=== PATIENT | female | born 1975 | race Caucasian/White ===

== ENCOUNTER 2017-08-17 17:32 | Observation (INO) ==
[2017-08-17 19:03] LABS: Basophils % 0.3 %; Eosinophils # 0.1 K/mcL (0.0-0.6); Eosinophils % 0.7 %; Hematocrit 35.8 % (35.3-44.9); Hemoglobin 12.1 g/dL (11.5-15.4); Immature Granulocytes % 0.2 % (0-4); Lymphocytes % 27.6 %; Mean Corpuscular HGB Conc 33.8 g/dL (31.6-35.5); Mean Corpuscular Hemoglobin 31.1 pg (28.0-33.3); Mean Platelet Volume 9.2 fL (9.4-12.4); Monocytes # 0.4 K/mcL (0.0-1.3); Monocytes % 3.3 %; Neutrophils # 7.4 K/mcL (1.6-8.9); Platelet Count 423 K/mcL (140-400); Red Blood Count 3.89 M/mcL (3.82-4.97); Red Cell Distribution Width 13.5 % (11.5-14.5); Segmented Neutrophils % 67.9 %
[2017-08-17 19:13] LABS: Albumin 3.6 g/dL (3.5-5.7); Bilirubin,Indirect 0.3 mg/dL (0.0-1.2); Bilirubin,Total 0.3 mg/dL (0.3-1.0); Calcium 8.9 mg/dL (8.6-10.3); Carbon Dioxide 24 mEq/L (23-29); Chloride 108 mEq/L (98-107); Potassium 3.3 mEq/L (3.5-5.1); Sodium 138 mEq/L (136-145)
[2017-08-17 19:19] LABS: Alanine Aminotransferase 26 Units/L (7-52); Alkaline Phosphatase 110 Units/L (34-104); Aspartate Amino Transferase 14 Units/L (13-39); BUN/Creatinine Ratio 14 (6-26); Blood Urea Nitrogen 10 mg/dL (6-20); Globulin 3.6 g/dL (2.4-3.5); Glucose 85 mg/dL (70-105); Lipase 28 Units/L (11-82); Osmolality,Calculated 284 (280-300); Total Protein 7.2 g/dL (6.4-8.9); eGFR For African Americans > 60 (> 60); eGFR For Non-African Americans > 60 (> 60)
[2017-08-17] MEDS ORDERED: Ondansetron 4 MG/2 ML VIAL IVP ONE (20:17)
[2017-08-17] MEDS ORDERED: *HR* HYDROmorphone (PF) 1 MG/ML SYRINGE IVP ONE ×3 (20:17→22:34)
[2017-08-17] MEDS ORDERED: 0.9 % Sodium Chloride 1,000 ML IVC ONE (20:17)
--- NOTE | 2017-08-17 20:29 | Emergency Department Note ---
Disposition Clinical Impression: Pancreatitis Qualifiers: Chronicity: acute Pancreatitis type: unspecified pancreatitis type Acute pancreatitis complication: unspecified Qualified Code(s): K85.90 - Acute pancreatitis without necrosis or infection, unspecified Abdominal pain Qualifiers: Abdominal location: epigastric Qualified Code(s): R10.13 - Epigastric pain Disposition: Admitted As Inpatient Condition: Fair Referrals: NONE,PCP [Primary Care Provider] - Forms: ED Satisfaction Letter, Work/School Release Time of Disposition: 22:33 Abdominal Pain HPI - General Chief Complaint: ED Abdominal Pain Stated Complaint: ABD Pain, N/V/D Time Seen by Provider: 08/17/17 20:29 Source: patient, family Mode of arrival: ambulatory Limitations: no limitations Nursing Notes Reviewed: Yes Vital Signs Reviewed: Yes - History of Present Illness HPI Narrative: 42-year-old female presents with right upper quadrant pain, epigastric pain, concern for pancreatitis, patient has this scheduled MRI of her pancreas ordered as she is had some mild peripancreatic swelling and inflammation. Patient states that she has had nausea and vomiting, severe 9.10 pain, worsening today, so she came in to be evaluated. Patient denies vaginal bleeding, dysuria or discharge. Patient states that she had recent CT scan done at [facility] she was admitted twice for abdominal pain and subsequently discharged. Patient states her pain is 9/10 aching crampy, radiating around her right side. She reports low-grade fevers, denies chest pain, denies hemoptysis hematochezia or melena Pt Subjective Complaint: abdominal pain Onset (ago): hour(s) Consistency: intermittent Location: RUQ, epigastric Pain Severity: severe Pain Scale: 9 Quality: cramping, aching Radiation: none Improves with: nothing Worsens with: nothing Associated symptoms: Reports: nausea, vomiting - Related Data Allergies Allergy/AdvReac Type Severity Reaction Status Date / Time azithromycin [From Zithromax] Allergy Hives Verified 08/17/17 17:40 Iodinated Contrast- Oral and Allergy Anaphylaxis Verified 08/17/17 17:40 IV Dye All systems ED: reviewed and negative except as stated. Review of Systems: As Per HPI Constitutional: Denies: fever, chills Eyes: Denies: eye pain ENT ED: Denies: ear pain Cardiovascular: Denies: chest pain, palpitations Respiratory: Denies: cough, dyspnea Gastrointestinal: Reports: as per HPI, abdominal pain, nausea, vomiting. Denies : diarrhea Genitourinary: Denies: urgency, dysuria Musculoskeletal: Denies: back pain Integumentary: Denies: rash Abdominal Pain PMH - Past Medical History Medical history: Reports: RA, other Female Surgical History: Reports: appendectomy, , Tonsillectomy Psychiatric history: Reports: no psych history - Social History Smoking status: Current every day smoker Alcohol use: Reports: none Drug use: Reports: none Physical Exam Constitutional: [place] female appears moderately to severely uncomfortable, somewhat diaphoretic, vital signs show tachycardia HEENT: NCAT, sclera anicteric Neck: normal inspection, neck is supple, trachea midline Resp: normal chest inspection, CTA bilaterally, no resp distress CV: RRR, no m/g/r GI: normal inspection, Soft, moderate severe tenderness to palpation in epigastrium with guarding in the epigastrium, + Gore's Sign, no tenderness at McBurney' point, Negative Rovsing's Back: normal inspection, negative CVA bilaterally, no tenderness to palpation Neuro: A&O3, no gross motor or sensory deficits bilaterally MSK: normal inspection, bilateral UE and LE with normal ROM Skin: No rashes, skin warm, dry, intact - General Limitations: no limitations General appearance: alert Course Course Narrative: 42-year-old female with severe epigastric right upper quadrant pain, positive Gore sign, bedside ultrasound was performed by Dr. Guzman see his documentation but no evidence of anterior wall thickening pericholecystic fluid or obvious gallstones, patient's lab work is ordered, also will check CT scans from [facility]. - Reevaluation(s) Reevaluation #1: CT scan shows evidence of peripancreatic's stranding, consistent with acute pancreatitis, her lipase is on elevated but she is severely tender is required multiple rounds of Dilaudid and is still having pain. Plan will be for admission for pain control, I did speak with primary care physician who corroborates her story and states that she was was 7 abdominal MRI and GI consultation gently we can arrange and this inpatient visit Hospitalist Paged. Time: 22:33 Reevaluation #2: Aki accepted for inpatient admission, possible GI consult and eval. Time: 23:18 Vital Signs Temperature 98.6 F 08/17/17 17:40 Pulse Rate 59 08/17/17 17:40 Respiratory Rate 20 08/17/17 17:40 Blood Pressure 157/110 08/17/17 17:40 O2 Sat by Pulse Oximetry 96 08/17/17 17:40 Temperature 98.6 F 08/17/17 17:40 Pulse Rate 57 08/17/17 21:49 Respiratory Rate 16 08/17/17 21:49 Blood Pressure 136/78 08/17/17 21:49 O2 Sat by Pulse Oximetry 96 08/17/17 21:49 Oxygen Delivery Oxygen Delivery Room Air Abdominal Pain - Lab Data Result diagrams: 08/17/17 18:57 08/17/17 18:57 Lab Results 08/17/17 08/17/17 08/17/17 Range/Units 18:57 18:57 20:51 WBC 10.8 (4.3-11.1) K/mcL RBC 3.89 (3.82-4.97) M/mcL Hgb 12.1 (11.5-15.4) g/dL Hct 35.8 (35.3-44.9) % MCV 92.0 (83.0-100.0) fL MCH 31.1 (28.0-33.3) pg MCHC 33.8 (31.6-35.5) g/dL RDW 13.5 (11.5-14.5) % Plt Count 423 H (140-400) K/mcL MPV 9.2 L (9.4-12.4) fL Immature Gran % 0.2 (0-4) % Seg Neutrophils % 67.9 % Lymphocytes % 27.6 % Monocytes % 3.3 % Eosinophils % 0.7 % Basophils % 0.3 % Neutrophils # 7.4 (1.6-8.9) K/mcL Lymphocytes # 3.0 (0.6-4.6) K/mcL Monocytes # 0.4 (0.0-1.3) K/mcL Eosinophils # 0.1 (0.0-0.6) K/mcL Basophils # 0.0 (0.0-0.2) K/mcL Sodium 138 (136-145) mEq/L Potassium 3.3 L (3.5-5.1) mEq/L Chloride 108 H (98-107) mEq/L Carbon Dioxide 24 (23-29) mEq/L BUN 10 (6-20) mg/dL Creatinine 0.74 (0.60-1.20) mg/dL Est GFR ( Amer) > 60 (> 60) Est GFR (Non-Af Amer) > 60 (> 60) BUN/Creatinine Ratio 14 (6-26) Glucose 85 (70-105) mg/dL Calculated Osmolality 284 (280-300) Calcium 8.9 (8.6-10.3) mg/dL Total Bilirubin 0.3 (0.3-1.0) mg/dL Direct Bilirubin 0.0 (0.0-0.2) mg/dL Indirect Bilirubin 0.3 (0.0-1.2) mg/dL AST 14 (13-39) Units/L ALT 26 (7-52) Units/L Alkaline Phosphatase 110 H (34-104) Units/L Serum Total Protein 7.2 (6.4-8.9) g/dL Albumin 3.6 (3.5-5.7) g/dL Globulin 3.6 H (2.4-3.5) g/dL Albumin/Globulin Ratio 1.0 L (1.1-2.2) Lipase 28 (11-82) Units/L Urine Color Yellow (Yellow) Urine Clarity Cloudy A (Clear) Urine pH 7.5 (5.0-8.0) pH Units Ur Specific [place] 1.019 (1.010-1.025) Urine Protein Negative (Neg-Trace) mg/dL Urine Glucose (UA) Normal (Normal) mg/dL Urine Ketones Negative (Negative) mg/dL Urine Blood Negative (Negative) Urine Nitrite Negative (Negative) Urine Bilirubin Negative (Negative) Urine Urobilinogen Normal (Normal) mg/dL Ur Leukocyte Esterase Negative (Negative) Urine Microscopic RBC 0-3 (0-3) per hpf Urine Microscopic WBC 3-5 H (0-3) per hpf Ur Squamous Epith Cells Many H (None-Few) per lpf Urine Bacteria None Seen (None-Few) per hpf Hyaline Casts None Seen (None-Few) per lpf Ur Culture Indicated? NO (NO) Urine Test (Negative) 08/17/17 Range/Units 20:51 WBC (4.3-11.1) K/mcL RBC (3.82-4.97) M/mcL Hgb (11.5-15.4) g/dL Hct (35.3-44.9) % MCV (83.0-100.0) fL MCH (28.0-33.3) pg MCHC (31.6-35.5) g/dL RDW (11.5-14.5) % Plt Count (140-400) K/mcL MPV (9.4-12.4) fL Immature Gran % (0-4) % Seg Neutrophils % % Lymphocytes % % Monocytes % % Eosinophils % % Basophils % % Neutrophils # (1.6-8.9) K/mcL Lymphocytes # (0.6-4.6) K/mcL Monocytes # (0.0-1.3) K/mcL Eosinophils # (0.0-0.6) K/mcL Basophils # (0.0-0.2) K/mcL Sodium (136-145) mEq/L Potassium (3.5-5.1) mEq/L Chloride (98-107) mEq/L Carbon Dioxide (23-29) mEq/L BUN (6-20) mg/dL Creatinine (0.60-1.20) mg/dL Est GFR ( Amer) (> 60) Est GFR (Non-Af Amer) (> 60) BUN/Creatinine Ratio (6-26) Glucose (70-105) mg/dL Calculated Osmolality (280-300) Calcium (8.6-10.3) mg/dL Total Bilirubin (0.3-1.0) mg/dL Direct Bilirubin (0.0-0.2) mg/dL Indirect Bilirubin (0.0-1.2) mg/dL AST (13-39) Units/L ALT (7-52) Units/L Alkaline Phosphatase (34-104) Units/L Serum Total Protein (6.4-8.9) g/dL Albumin (3.5-5.7) g/dL Globulin (2.4-3.5) g/dL Albumin/Globulin Ratio (1.1-2.2) Lipase (11-82) Units/L Urine Color (Yellow) Urine Clarity (Clear) Urine pH (5.0-8.0) pH Units Ur Specific [place] (1.010-1.025) Urine Protein (Neg-Trace) mg/dL Urine Glucose (UA) (Normal) mg/dL Urine Ketones (Negative) mg/dL Urine Blood (Negative) Urine Nitrite (Negative) Urine Bilirubin (Negative) Urine Urobilinogen (Normal) mg/dL Ur Leukocyte Esterase (Negative) Urine Microscopic RBC (0-3) per hpf Urine Microscopic WBC (0-3) per hpf Ur Squamous Epith Cells (None-Few) per lpf Urine Bacteria (None-Few) per hpf Hyaline Casts (None-Few) per lpf Ur Culture Indicated? (NO) Urine Test Negative (Negative) Attestation Statement - Attestation Attestation: I, Jason Rutledge, examined this patient and my medical decision-making was reviewed with the IT CONSULTING MANAGER/PA/Advanced Practice Nurse/Resident Physician. I agree with the documented findings, disposition and treatment plan as described except to the extent set forth below. 42-year-old female presents emergency Department with concerns of epigastric abdominal pain. Patient was admitted to [facility] twice for same issue. Patient presented to her primary care provider's office today, had acute onset of the pain was referred to the emergency department. She states the pain is in her epigastrium and radiates to her back. She had 2 CTs performed at [facility] which showed inflammation around the head of her pancreas however she did not have elevation of her lipase here today in the emergency department. Patient had significant amount of pain and did not resolve after 2 doses of IV pain medication. Patient will be admitted to the hospital for further evaluation of her epigastric pain, given IV fluids for possible pancreatitis as well as admission for intractable pain.
[2017-08-17 20:58] LABS: Bilirubin,Urine Negative (Negative); Blood,Urine Negative (Negative); Clarity,Urine Cloudy (Clear); Color,Urine Yellow (Yellow); Glucose,Urine (UA) Normal (Normal); Ketones,Urine Negative (Negative); Leukocyte Esterase,Urine Negative (Negative); Nitrite,Urine Negative (Negative); PH,Urine 7.5 pH Units (5.0-8.0); Protein,Urine Negative (Neg-Trace); Specific Gravity,Urine 1.019 (1.010-1.025); Urobilinogen,Urine Normal (Normal)
[2017-08-17 21:00] LABS: Bacteria,Urine None Seen per hpf (None-Few); Hyaline Casts,Urine None Seen per lpf (None-Few); RBC,Urine 0-3 per hpf (0-3); Squamous Epithelial Cell,Urine Many per lpf (None-Few)
[2017-08-17] MEDS ORDERED: *HR* HYDROmorphone 2 MG/ML SYRINGE IVP ONE (22:45)
[2017-08-17] MEDS ORDERED: 0.9 % Sodium Chloride 1,000 ML IVC SCH (22:45)
[2017-08-18] MEDS ORDERED: Ondansetron 4 MG/2 ML VIAL IVP PRN (01:11)
[2017-08-18] MEDS ORDERED: Naloxone 0.4 MG/ML INJ IVP PRN (01:11)
--- NOTE | 2017-08-18 01:19 | Internal Med History&Physical ---
Date of Encounter: 08/18/17 Time of Encounter: 00:45 Assessment and Plan (1) Pancreatitis Current visit: Yes Status: Acute CT abd/pelvis from [facility] a few days ago reported peripancreatic's stranding, consistent with acute pancreatitis will continue IV fluids NPO, advance diet as tolerated pain control (use pain medications cautiously as pt is exhibiting drug seeking behavior) consider GI consult if symptoms persist antiemetics as needed f/u lipid panel in am Qualifiers: Chronicity: acute Pancreatitis type: unspecified pancreatitis type Acute pancreatitis complication: unspecified Qualified Code(s): K85.90 - Acute pancreatitis without necrosis or infection, unspecified (2) Abdominal pain Current visit: Yes Status: Acute as listed above Qualifiers: Abdominal location: right upper quadrant Qualified Code(s): R10.11 - Right upper quadrant pain (3) Tobacco abuse Current visit: Yes Status: Chronic smoking cessation counseling provided pt refused nicotine supplementation therapy (4) Obesity (BMI 30-39.9) Current visit: Yes Status: Chronic (5) DVT prophylaxis Current visit: Yes Status: Acute heparin SQ Internal Medicine - H&P: HPI Chief complaint: abd pain Admitted From: Home Plans for Post Hospital Care: Home History of present illness: Ms. Lindsey is a 42 year old female with PMH obesity, tobacco abuse, pancreatitis presents to the ER for worsening abd pain, n/v. Pt reports of having recurrent episodes of acute pancreatitis in the last two months. She was at her PCP's office earlier today when the pain became extremely severe which prompted her ER visit. Pt recently had a CT abd/pelvis done at the [facility] which reported peripancreatic's stranding, consistent with acute pancreatitis and is scheduled to get an outpatient MRI on Aug 22. Pt received high doses of Dilauid in the ER and she was admitted for observation due to intractable pain. During my evaluation, pt was noted to be eating a ham sandwich with chips. She did not appear to be in any distress. Denied any nausea or vomiting. Her clinical exam was negative, and no tenderness was noted to palpation. However when questioned if she was in pain, she reported of having severe right upper quadrant pain that is only relieved with Dilaudid. There is a concern for drug seeking behavior with patient's current presentation. Denies any fevers or chills. Social history: Everyday smoker Past Med Surg Social Fam HX - Past Medical History Medical history: RA, other Psychiatric history: no psych history - Social History Smoking Status: Current every day smoker Smokeless Tobacco Status: No Alcohol use: none Drug use: none Internal Medicine - H&P: Meds 3 Allergy/AdvReac Type Severity Reaction Status Date / Time azithromycin [From Zithromax] Allergy Hives Verified 08/17/17 17:40 Iodinated Contrast- Oral and Allergy Anaphylaxis Verified 08/17/17 17:40 IV Dye All Systems PM: A 10-system review of systems was performed and is negative for pertinent findings except as documented above in the HPI. - Constitutional Constitutional: as per HPI - Constitutional Vitals: Temp Pulse Resp BP Pulse Ox 97.3 F L 64 15 123/82 90 08/18/17 00:15 08/18/17 00:15 08/18/17 00:15 08/18/17 00:15 08/18/17 00:15 General appearance: Present: A&O X 3, no acute distress, obese - Head Head exam: Present: atraumatic, normocephalic - Eye Eye exam: Present: conjuntiva pink, sclera anicteric - Respiratory Respiratory exam: Present: CTAB. Absent: accessory muscle use, rales, rhonchi, wheezes - Cardiovascular Cardiovascular exam: Present: RRR, +S1, +S2. Absent: diastolic murmur, gallop, rubs, systolic murmur - GI/Abdominal GI/Abdominal exam: Present: normal bowel sounds, soft, no peritoneal signs. Absent: distended, tenderness - Extremities Exam Extremities exam: Present: warm, radial pulses palpable and symmetrical. Absent : calf tenderness - Neurological Exam Neurological exam: Present: alert, oriented X3 Internal Med - H&P Results - Labs CBC & Chem 7: 08/17/17 18:57 08/17/17 18:57
[2017-08-18] MEDS: *HR* Morphine 2 MG/ML SYRINGE IVP PRN ×3 (02:01→11:14)
[2017-08-18] MEDS: *HR* HYDROcodone/Acet 5/325 mg TABLET PO PRN ×3 (03:05→17:53)
[2017-08-18 05:27] LABS: Basophils % 0.3 %; Eosinophils # 0.1 K/mcL (0.0-0.6); Hematocrit 30.6 % (35.3-44.9); Immature Granulocytes % 0.2 % (0-4); Lymphocytes % 30.8 %; Mean Corpuscular HGB Conc 33.7 g/dL (31.6-35.5); Mean Corpuscular Hemoglobin 31.8 pg (28.0-33.3); Mean Corpuscular Volume 94.4 fL (83.0-100.0); Mean Platelet Volume 9.7 fL (9.4-12.4); Monocytes # 0.4 K/mcL (0.0-1.3); Monocytes % 4.2 %; Neutrophils # 6.2 K/mcL (1.6-8.9); Platelet Count 350 K/mcL (140-400); Red Blood Count 3.24 M/mcL (3.82-4.97); Red Cell Distribution Width 13.6 % (11.5-14.5); Segmented Neutrophils % 63.5 %
[2017-08-18 05:32] LABS: Hemoglobin 10.3 g/dL (11.5-15.4)
[2017-08-18 05:45] LABS: BUN/Creatinine Ratio 14 (6-26); Blood Urea Nitrogen 10 mg/dL (6-20); Carbon Dioxide 23 mEq/L (23-29); Chloride 114 mEq/L (98-107); Glucose 97 mg/dL (70-105); Magnesium 1.8 mg/dL (1.6-2.6); Osmolality,Calculated 289 (280-300); Phosphorous 3.6 mg/dL (2.7-4.5); Potassium 3.4 mEq/L (3.5-5.1); Sodium 140 mEq/L (136-145); eGFR For African Americans > 60 (> 60); eGFR For Non-African Americans > 60 (> 60)
[2017-08-18] MEDS: *HR* Heparin 5,000 UNIT/ML VIAL SQ SCH ×3 (06:29→21:29)
[2017-08-18] MEDS: Pantoprazole 40 MG VIAL IVP SCH ×2 (06:30→17:04)
--- NOTE | 2017-08-18 09:22 | Internal Med Progress Note ---
Date of Encounter: 08/18/17 Time of Encounter: 09:20 - Assessment and plan (1) Pancreatitis Current Visit: Yes Status: Acute Assessment and plan: Recurrent pancreatitis. Symptomatic management including NPO for now and advance diet as tollerated. She has an OP MRI scheduled and will be hopefully be able to keep this appointmant. Her lab work is minimal and her symptoms well controlled. She asks for Dilaudid by name. Qualifiers: Chronicity: acute Pancreatitis type: unspecified pancreatitis type Acute pancreatitis complication: unspecified Qualified Code(s): K85.90 - Acute pancreatitis without necrosis or infection, unspecified (2) Abdominal pain Current Visit: Yes Status: Acute Assessment and plan: Continue current mgt and try to avoid narcotic pain meds. Qualifiers: Abdominal location: upper abdomen, unspecified Qualified Code(s): R10.10 - Upper abdominal pain, unspecified (3) Tobacco abuse Current Visit: Yes Status: Chronic Assessment and plan: Nicotine patch - Time Spent With Patient Greater than 35 minutes - Subjective Interval history: 42 year old female with PMH of pancreatitis admitted overnight abd pain, n/v and acute pancreatitis. This is her second bout of pancreatitis in the last two months. Her recent CT abd/pelvis done at the [place] [facility] which reported peripancreatic's stranding, consistent with acute pancreatitis. She was admitted for observation. She has an OP MRI scheduled for 08/22/2017 arranged by her PCP. - Constitutional Vitals: Temp Pulse Resp BP Pulse Ox 98.2 F 50 14 115/77 93 08/18/17 07:25 08/18/17 07:25 08/18/17 07:25 08/18/17 07:25 08/18/17 07:25 General appearance: Present: A&O X 3, no acute distress, obese - Head Head exam: Present: atraumatic, normocephalic - Eye Eye exam: Present: EOMI, PERRL, conjuntiva pink, sclera anicteric Pupils: Present: PERRL - Neck Neck exam general surgery: Present: supple, trachea midline. Absent: lymphadenopathy - Respiratory Respiratory exam: Present: CTAB. Absent: accessory muscle use, rales, rhonchi, wheezes, tachypnea - Cardiovascular Cardiovascular exam: Present: RRR, +S1, +S2. Absent: diastolic murmur, gallop, rubs, systolic murmur - GI/Abdominal GI/Abdominal exam: Present: guarding, normal bowel sounds, soft, no peritoneal signs. Absent: distended, hyperactive bowel sounds, hypoactive bowel sounds, pulsatile mass, rebound, rigid, splenomegaly, tenderness Additional comments: She has tenderness and guarding to deep palpation at the right and left upper quads without RBT. - Extremities Exam Extremities exam: Present: warm, radial pulses palpable and symmetrical. Absent : calf tenderness, cyanotic, pedal edema - Neurological Exam Neurological exam: Present: CN II-XII intact, oriented X3, no focal deficits. Absent: pronater drift, facial droop, speech deficit - Skin Skin exam: Present: dry, intact Internal Medicine: Result - Labs CBC & Chem 7: 08/18/17 04:54 08/18/17 04:54 Labs: Short CBC 08/18/17 Range/Units 04:54 WBC 9.8 (4.3-11.1) K/mcL Hgb 10.3 L D (11.5-15.4) g/dL Hct 30.6 L (35.3-44.9) % Plt Count 350 (140-400) K/mcL Neutrophils # 6.2 (1.6-8.9) K/mcL BMP 08/18/17 04:54 Sodium 140 Potassium 3.4 L Chloride 114 H Carbon Dioxide 23 BUN 10 Creatinine 0.70 Glucose 97 Calcium 8.0 L Consult Discharge Plan - Plan Referrals: NONE,PCP [Primary Care Provider] -
[2017-08-18] MEDS: 0.9 % Sodium Chloride 1,000 ML IVC SCH ×3 (09:52→17:03)
[2017-08-18] MEDS: *HR* HYDROmorphone (PF) 1 MG/ML SYRINGE IVP PRN ×3 (13:09→21:27)
[2017-08-18] MEDS ORDERED: Potassium Chloride 40 MEQ, Lidocaine 1% 2 ML in D5% in Water 500 ML IVPB ONE (15:34)
[2017-08-18] MEDS: Gabapentin 400 MG CAPSULE PO SCH (21:28)
[2017-08-19] MEDS: *HR* HYDROmorphone (PF) 1 MG/ML SYRINGE IVP PRN ×3 (01:30→11:16)
[2017-08-19] MEDS: *HR* Heparin 5,000 UNIT/ML VIAL SQ SCH (06:19)
[2017-08-19] MEDS: Pantoprazole 40 MG VIAL IVP SCH (06:19)
[2017-08-19] MEDS: 0.9 % Sodium Chloride 1,000 ML IVC SCH (06:25)
[2017-08-19 07:44] LABS: BUN/Creatinine Ratio 9 (6-26); Blood Urea Nitrogen 6 mg/dL (6-20); Carbon Dioxide 23 mEq/L (23-29); Chloride 108 mEq/L (98-107); Glucose 87 mg/dL (70-105); Osmolality,Calculated 283 (280-300); Potassium 3.9 mEq/L (3.5-5.1); Sodium 138 mEq/L (136-145); eGFR For African Americans > 60 (> 60); eGFR For Non-African Americans > 60 (> 60)
[2017-08-19 08:20] LABS: Basophils % 0.4 %; Eosinophils # 0.1 K/mcL (0.0-0.6); Eosinophils % 0.7 %; Immature Granulocytes % 0.4 % (0-4); Lymphocytes # 3.3 K/mcL (0.6-4.6); Lymphocytes % 43.6 %; Mean Corpuscular HGB Conc 33.3 g/dL (31.6-35.5); Mean Corpuscular Hemoglobin 31.3 pg (28.0-33.3); Mean Platelet Volume 9.9 fL (9.4-12.4); Monocytes # 0.4 K/mcL (0.0-1.3); Monocytes % 5.1 %; Neutrophils # 3.7 K/mcL (1.6-8.9); Platelet Count 443 K/mcL (140-400); Red Blood Count 3.83 M/mcL (3.82-4.97); Red Cell Distribution Width 13.7 % (11.5-14.5); Segmented Neutrophils % 49.8 %
[2017-08-19] MEDS: Gabapentin 400 MG CAPSULE PO SCH (09:38)
[2017-08-19] MEDS: *HR* HYDROcodone/Acet 5/325 mg TABLET PO PRN (09:46)
[2017-08-19 10:43] VITALS: BP 139/96
--- NOTE | 2017-08-19 12:03 | Discharge Summary ---
Date of Encounter: 08/29/17 Time of Encounter: 12:01 - Discharge Diagnosis (1) Pancreatitis Priority: Primary Status: Acute Qualifiers: Chronicity: acute Pancreatitis type: unspecified pancreatitis type Acute pancreatitis complication: unspecified Qualified Code(s): K85.90 - Acute pancreatitis without necrosis or infection, unspecified (2) Abdominal pain Priority: Primary Status: Acute Qualifiers: Abdominal location: upper abdomen, unspecified Qualified Code(s): R10.10 - Upper abdominal pain, unspecified (3) Tobacco abuse Priority: Secondary Status: Chronic - Discharge Medications Prescriptions: HYDROcodone/Acet 5/325 mg [Manson 5-325 mg] 1 tab PO Q4HR PRN #30 tablet PRN Reason: Moderate Pain (4-6) Home Medications: FLUoxetine HCl [Fluoxetine HCl] 40 mg PO BID 08/18/17 [History] Gabapentin [Neurontin] 1,200 mg PO TID 08/18/17 [History] Omeprazole [PriLOSEC] 40 mg PO DAILY 08/18/17 [History] Trazodone HCl 150 mg PO HS 08/18/17 [History] clonazePAM [Klonopin] 0.5 mg PO BID PRN 08/18/17 [History] hydroCHLOROthiazide [Hydrochlorothiazide] 25 mg PO DAILY 08/18/17 [History] HYDROcodone/Acet 5/325 mg [Manson 5-325 mg] 1 tab PO Q4HR PRN #30 tablet [Rx] Allergies/Adverse Reactions: 3 Allergy/AdvReac Type Severity Reaction Status Date / Time azithromycin [From Zithromax] Allergy Hives Verified 08/17/17 17:40 Iodinated Contrast- Oral and Allergy Anaphylaxis Verified 08/17/17 17:40 IV Dye Procedures/tests Complete & Pending: Procedures Performed prior 72 hours Category Date Time Status abdominal ultrasound - limited [US abdomen limited] [US Exams 08/18/17 11:00 Completed ] Routine Date of admission: 08/17/17 23:25 Primary care physician: PCP LEANNA Discharging clinician: Brendan Leach - Patient Status Disposition: Home, Self-Care Condition: Fair - Discharge Instructions Instructions: Pancreatitis (DC) Follow Up With: NONE,PCP [Primary Care Provider] - Interval History: The pt is a 42 year old woman admitted with acute pacreatitis. She wass kept NPO initially and her pain treated with Dilaudod and Manson. Her symptoms improved and her diet was asdvanced slowly. She responded well and had no nausea or vomiting prior to discharge and she was able to eat without abdominal pain or nausea. She will need f/u with her PCP and she was given a short course of Manson for pain. Hospital course: Ms. Lindsey is a 42 year old female Patient asking fort additional narcotic pain medications at discharge to avoid using her current prescription of Percocet - Time Spent with Patient Total time spent providing and/or coordinating discharge services: - Constitutional Vitals: Temp Pulse Resp BP Pulse Ox 97.7 F 75 15 139/96 98 08/19/17 10:00 08/19/17 10:00 08/19/17 10:00 08/19/17 10:00 08/19/17 10:00 General appearance: Present: A&O X 3, no acute distress, obese - Head Head exam: Present: atraumatic, normocephalic - Eye Eye exam: Present: PERRL, conjuntiva pink, sclera anicteric Pupils: Present: PERRL - Neck Neck exam general surgery: Present: supple, trachea midline. Absent: lymphadenopathy - Respiratory Respiratory exam: Present: CTAB. Absent: accessory muscle use, rales, rhonchi, wheezes - Cardiovascular Cardiovascular exam: Present: RRR, +S1, +S2. Absent: diastolic murmur, gallop, rubs, systolic murmur - GI/Abdominal GI/Abdominal exam: Present: normal bowel sounds, soft, no peritoneal signs. Absent: distended, tenderness - Extremities Exam Extremities exam: Present: warm, radial pulses palpable and symmetrical. Absent : calf tenderness, cyanotic, pedal edema - Neurological Exam Neurological exam: Present: CN II-XII intact, oriented X3, no focal deficits. Absent: pronater drift, facial droop, speech deficit - Skin Skin exam: Present: dry, intact
== END 2017-08-19 12:55 | disposition home or self-care (01) ==
LOC: 3ANU 17:32 → EMEROO 17:32 → 3ANU 23:46
PROVIDERS: ADMIT Internal Medicine; ATTEND Internal Medicine